=== PATIENT | female | born 1960 | race Hispanic/Latino ===

== ENCOUNTER 2024-07-10 10:28 | Emergency (ER) | payer OTHER, SELFPAY ==
[2024-07-10] MEDS ORDERED: LEVALBUTEROL 1.25 MG/3 ML NEB ONE ×2 (10:54→12:52)
--- NOTE | 2024-07-10 11:05 | RAD REPORT ---
EXAMINATION: ONE VIEW CHEST XR CLINICAL INDICATION: Female, 64 years old. [facility] DYSPNEA Bed Name: 7 TECHNIQUE: 1 View, AP supine, X-ray of the chest was performed. [id number]. COMPARISON: No prior exam. FINDINGS: Lungs and pleura: Clear lungs. No effusion. Heart and mediastinum: Normal heart size. Unremarkable mediastinal contours. Osseous structures: No acute abnormality. Tubes/lines: None Other: None. IMPRESSION: No acute intrathoracic abnormality.
[2024-07-10 11:14] LABS: Absolute Basophils 0.1 K/uL (0-0.5); Absolute Eosinophils 0.5 K/uL (0-0.5); Absolute Lymphocytes (CBC) 1.9 K/uL (0.7-4.9); Absolute Monocytes 0.5 K/uL (0.1-1.3); Absolute Neutrophil 6.1 K/uL (1.8-8.0); Basophils % 0.7 % (0-1.3); Eosinophils % 5.5 % (0-4.4); Hematocrit 37.5 % (36.0-45.0); Hemoglobin 12.2 g/dL (12.0-15.0); Lymphocytes % 20.7 % (15.3-44.8); MCH 27.6 pg (27.0-35.0); MCHC 32.6 g/dL (32.0-36.0); MCV 84.5 fL (80-100); Monocytes % 5.7 % (3.3-12.3); Neutrophils % 67.4 % (41.7-73.7); Platelets 155 thou/uL (152-406); RBC Red Blood Cell Count 4.43 M/uL (3.86-4.86); Red Cell Distribution Width 14.3 % (12.1-15.2)
[2024-07-10 11:28] LABS: Albumin 3.8 g/dL (3.4-5.0); Anion Gap 7.3 mEq/L (5.0-15.0); Bilirubin Direct 0.2 mg/dL (0-0.2); Bilirubin Indirect, Calculated 0.3 mg/dL (0.2-0.8); Bilirubin Total 0.5 mg/dL (0.2-1.0); Globulin 3.7 g/dL (2.3-3.5); Potassium 3.3 mEq/L (3.5-5.1); Protein, Total 7.5 g/dL (6.4-8.2); Troponin High Sensitivity 4.3 pg/mL (<58.9)
--- NOTE | 2024-07-10 11:28 | RAD REPORT ---
EXAMINATION: US LOWER EXTREMITY VENOUS DOPPLER BILATERAL CLINICAL INDICATION: Female, 64 years old.Swelling TECHNIQUE: Complete bilateral duplex sonography of the lower extremity veins was performed. The exami nation included compression for vein patency, color Doppler imaging and flow augmentation in response to distal compression of the distal external iliac, common femoral, femoral, popliteal, kit david, tibial and great saphenous veins. [id number]. COMPARISON: No prior exams FINDINGS: Duplex sonography imaging demonstrates all deep examined to be fully compressible with spontaneous, p hasic and augmented flow bilaterally. IMPRESSION: No evidence of deep venous thrombosis seen in either lower extremity.
--- NOTE | 2024-07-10 12:16 | RAD REPORT ---
EXAMINATION: CTA CHEST PE CLINICAL INDICATION: Female, 64 years old, swelling/shortness of breath TECHNIQUE: This examination was performed according to an angiographic protocol with 3D post-processi ng. This involves 3D reconstructions, MIPs, volume rendered images and/or shaded surface rendering. One or more of the following dose reduction techniques were used: Automated exposure control, adjustm ent of the mA and/or kV according to patient size, and/or iterative reconstruction. Unless otherwise specified, incidental findings do not require dedicated imaging follow-up. [id number]. COMPARISON: Same-day chest radiograph FINDINGS: LOWER NECK: Visualized thyroid gland and soft tissues are normal. LUNGS AND AIRWAYS: Bronchial wall thickening and possibly some secretions in the lower lobe airways. No consolidative airspace disease. No suspicious pulmonary nodules. PLEURA: No pleural effusion. No pneumothorax. Hemidiaphragms are normally positioned. MEDIASTINUM AND LYMPH NODES: No mediastinal mass or fluid collection. Normal size mediastinal, hilar, and axillary lymph nodes. THORACIC AORTA: Normal caliber and configuration. PULMONARY ARTERIES: Good quality examination. Normal caliber. No evidence of pulmonary emboli to the subsegmental level. HEART: Normal heart size. No pericardial effusion. Coronary arterial calcifications are present. OSSEOUS STRUCTURES AND CHEST WALL: Intact. UPPER ABDOMEN: No significant abnormalities. IMPRESSION: No evidence of pulmonary emboli to the subsegmental level. Nonspecific bronchial wall thickening with some secretions in the lower lungs that could be secondary to bronchitis.
[2024-07-10] MEDS ORDERED: METHYLPREDNISOLONE 125 MG INJ ONE (12:52)
--- NOTE | 2024-07-10 13:32 | EDPHYS ---
Physician Documentation [facility] Name: Bossman Davis Age: 64 yrs Sex: Female : 1960 Arrival Date: 07/10/2024 Time: 10:28 Bed 7 Private MD: ED Physician Willy Thomas HPI: 07/10 10:48 This 64 yrs old Female presents to ER via Ambulatory with complaints of Asthma rn Exacerbation. 10:58 The patient has shortness of breath at rest, with light activity. Onset: The rn symptoms/episode began/occurred 1 week(s) ago. The patient's shortness of breath is aggravated by exertion, light activity, supine position, talking, walking. Severity of symptoms: At their worst the symptoms were moderate in the emergency department the symptoms are unchanged. The patient has experienced similar episodes in the past. Patient reports recently moved here from [place], told in the past had unknown lung problem and that she needed "something", never got that something and now presents with worsening dyspnea on exertion and orthopnea over the last week. Denies previous cardiac problems. No fever or chills. Does not feel like this is an infection. No trauma. Does report lower extremity edema for the last 4 days.. Historical: - Allergies: 10:42 No Known Allergies; hb - Home Meds: 10:42 Albuterol Inhl [Active]; losartan 50 mg oral tablet [Active]; atorvastatin oral hb [Active]; Flanax (naproxen) oral [Active]; - PMHx: 10:42 Hypertension; hb - Immunization history:: Adult Immunizations up to date. - Infectious Disease History:: Denies. - Social history:: Smoking status: Patient denies any tobacco usage or history of. - Family history:: not pertinent. - Hospitalizations: : No recent hospitalization is reported. ROS: 10:58 Constitutional: Negative for fever, chills, and weight loss, Cardiovascular: Negative rn for chest pain, palpitations, and edema, Respiratory: Positive for shortness of breath Abdomen/GI: Negative for abdominal pain, nausea, vomiting, diarrhea, and constipation, Back: Negative for injury and pain, MS/Extremity: Positive for lower extremity edema Skin: Negative for injury, rash, and discoloration, Neuro: Negative for headache, weakness, numbness, tingling, and seizure, Exam: 10:58 Constitutional: This is a well developed, well nourished patient who is awake, alert, rn mild to moderate tachypnea, walks to room using cane Head/Face: Normocephalic, atraumatic. Cardiovascular: Tachycardic, regular. Respiratory: Mild to moderate tachypnea with diminished breath sounds at bases and crackles. Occasional wheeze that is worse in the right lung compared to left lung MS/ Extremity: Pulses equal, no cyanosis. Neurovascular intact. Nonpitting edema bilateral lower extremities Neuro: Awake and alert, GCS 15 antalgic gait 12:08 ECG was reviewed by the Attending Physician. rn Vital Signs: 10:40 BP 151 / 89; Pulse 99; Resp 24; Temp 98.9(O); Pulse Ox 97% on R/A; Weight 74.84 kg; hb Height 5 ft. 1 in. ; Pain 0/10; 12:30 BP 144 / 79; Pulse 96; Resp 26 S; Pulse Ox 93% on R/A; aa5 13:30 BP 142 / 82; Pulse 95; Resp 20 S; Temp 97.8(TE); Pulse Ox 95% on R/A; aa5 10:40 Body Mass Index 31.18 (74.84 kg, 154.94 cm) hb 10:40 Pain Scale: Adult hb MDM: 10:33 Patient medically screened. rn 13:30 Differential diagnosis: Anemia asthma, Bronchitis CHF exacerbation, Myocardial rn Infarction pneumonia, Pneumothorax Psychogenic pulmonary edema, Pulmonary Embolism. Data reviewed: vital signs, nurses notes, lab test result(s), EKG, radiologic studies, CT scan, plain films, and as a result, I will discharge patient. Independent interpretation of the following test(s) in the Emergency Department EKG: See my EKG interpretation above X-Ray: My interpretation is Chest x-ray images negative for pneumothorax or pneumonia per my interpretation. Care significantly affected by the following chronic conditions: Asthma, hypertension. Counseling: I had a detailed discussion with the patient and/or guardian regarding the historical points, exam findings, and any diagnostic results supporting the discharge/admit diagnosis, lab results, radiology results, the need for outpatient follow up, to return to the emergency department if symptoms worsen or persist or if there are any questions or concerns that arise at home. Response to treatment: the patient's symptoms have markedly improved after treatment, and as a result, I will discharge patient. Special discussion: I discussed with the patient/guardian in detail that at this point there is no indication for admission to the hospital. It is understood, however, that if the symptoms persist or worsen the patient needs to return immediately for re-evaluation. 07/10 10:46 Order name: Basic Metabolic Panel; Complete Time: 11:07/10 10:46 Order name: CBC with Diff; Complete Time: :07/10 10:46 Order name: LFT's; Complete Time: 11:07/10 10:46 Order name: NT PRO-BNP; Complete Time: :07/10 10:46 Order name: Troponin HS; Complete Time: :07/10 10:46 Order name: XRAY Chest (1 view); Complete Time: 11:07/10 11:02 Order name: Extrem Venous W Compression Jose US; Complete Time: 11:07/10 11:02 Order name: CT Chest For PE Angio; Complete Time: 12:18 07/10 10:46 Order name: Cardiac monitoring; Complete Time: 10:48 rn 07/10 10:46 Order name: EKG - Nurse/Tech; Complete Time: 11:07 07/10 10:46 Order name: IV Saline Lock; Complete Time: 10:49 07/10 10:46 Order name: Labs collected and sent; Complete Time: 10:48 rn 07/10 10:46 Order name: O2 Per Protocol; Complete Time: 10:48 07/10 10:46 Order name: O2 Sat Monitoring; Complete Time: 10:49 rn EC:08 Rate is 89 beats/min. Rhythm is regular. Left axis deviation noted. QRS is positive in rn lead I and negative in lead aVF. NC interval is normal. QRS interval is normal. QT interval is normal. No Q waves. T waves are Normal. No ST changes noted. Clinical impression: NSR w/ Non-specific ST/T Changes. Interpreted by me. Reviewed by me. Administered Medications: 10:55 Drug: Levalbuterol Inhalation 1.25 mg Inhalation once Route: Inhalation; aa5 12:55 Drug: Levalbuterol Inhalation 1.25 mg Inhalation once Route: Inhalation; aa5 12:55 Drug: MethylPrednisoLONE IVP 125 mg IVP once Route: IVP; Site: left antecubital; aa5 13:00 Follow up: Response: No adverse reaction aa5 Disposition Summary: 07/10/24 13:31 Discharge Ordered Notes: Location: Home rn Problem: new rn Symptoms: have improved rn Condition: Stable rn Diagnosis - Unspecified asthma with (acute) exacerbation rn Followup: rn - With: Private Physician - When: As needed - Reason: Recheck today's complaints, Re-evaluation by your physician Discharge Instructions: - Discharge Summary Sheet rn - Asthma, Adult rn Forms: - Medication Reconciliation Form rn - 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 Day 2, 3, 4 , 5 take one (1) tablet once daily.; 6 tablet; Refills: 0, Product Selection Permitted Signatures: Dispatcher [employer] EDID Willy Thomas MD MD rn Calderon, Audri RN RN aa5 Liberty Iverson RN RN Corrections: (The following items were deleted from the chart) 11:02 11:02 Chest For PE Angio+CT.RAD.BRZ ordered. [facility] EDID 11:02 10:58 Constitutional: This is a well developed, well nourished patient who is awake, rn alert, mild to moderate tachypnea, walks to room using cane Head/Face: Normocephalic, atraumatic. rn
--- NOTE | 2024-07-10 13:32 | ER ---
Nurse's Notes [facility] Name: Bossman Davis Age: 64 yrs Sex: Female : 1960 Arrival Date: 07/10/2024 Time: 10:28 Bed 7 Private MD: Diagnosis: Unspecified asthma with (acute) exacerbation Presentation: 07/10 10:40 Chief complaint: BLE swelling and SOB x 4 days. Coronavirus screen: At this time, the hb client does not indicate any symptoms associated with coronavirus-19. Ebola Screen: No symptoms or risks identified at this time. Initial Sepsis Screen: Does the patient meet any 2 criteria? RR > 20 per min. No. Patient's initial sepsis screen is negative. Does the patient have a suspected source of infection? No. Patient's initial sepsis screen is negative. Risk Assessment: Do you want to hurt yourself or someone else? Patient reports no desire to harm self or others. Onset of symptoms was July 06, 2024. 10:40 Method Of Arrival: Ambulatory hb 10:40 Acuity: CHRISTO 3 hb Historical: - Allergies: 10:42 No Known Allergies; hb - Home Meds: 10:42 Albuterol Inhl [Active]; losartan 50 mg oral tablet [Active]; atorvastatin oral hb [Active]; Flanax (naproxen) oral [Active]; - PMHx: 10:42 Hypertension; hb - Immunization history:: Adult Immunizations up to date. - Infectious Disease History:: Denies. - Social history:: Smoking status: Patient denies any tobacco usage or history of. - Family history:: not pertinent. - Hospitalizations: : No recent hospitalization is reported. Screenin:50 [facility] ED Fall Risk Assessment (Adult) History of falling in the last 3 months, aa5 including since admission No falls in past 3 months (0 pts) Confusion or Disorientation No (0 pts) Intoxicated or Sedated No (0 pts) Impaired Gait No (0 pts) Mobility Assist Device Used No (0 pt) Altered Elimination No (0 pt) Score/Fall Risk Level 0 - 2 = Low Risk Oriented to surroundings, Maintained a safe environment, Educated pt \T\ family on fall prevention, incl call for assistance when getting out of bed. Abuse screen: Denies threats or abuse. Nutritional screening: No deficits noted. Tuberculosis screening: No symptoms or risk factors identified. Assessment: 10:50 General: Appears uncomfortable, Behavior is calm, cooperative. Pain: Complains of pain aa5 in upper back Pain does not radiate. Pain currently is 6 out of 10 on a pain scale. Quality of pain is described as sharp, Pain began 2-3 days ago. Is intermittent. Neuro: Level of Consciousness is awake, alert, obeys commands, Oriented to person, place, time, situation. Cardiovascular: Denies chest pain, Heart tones S1 S2 present Edema to kam lower extremities. Rhythm is regular. Respiratory: Reports shortness of breath at rest pain with respiration Airway is patent Respiratory effort is labored, Respiratory pattern is tachypnea Breath sounds with wheezes bilaterally. GI: No signs and/or symptoms were reported involving the gastrointestinal system. : No signs and/or symptoms were reported regarding the genitourinary system. EENT: No signs and/or symptoms were reported regarding the EENT system. Derm: Skin is pink, warm \T\ dry. Musculoskeletal: Range of motion: intact in all extremities. 11:25 Reassessment: Patient states feeling better. Patient states symptoms have improved. aa5 Neuro: Level of Consciousness is awake, alert, obeys commands, Oriented to person, place, time, situation. Respiratory: Airway is patent Respiratory effort is even, unlabored, Respiratory pattern is tachypnea. Derm: Skin is pink, warm \T\ dry. 12:30 Neuro: Level of Consciousness is awake, alert, obeys commands, Oriented to person, aa5 place, time, situation. Respiratory: Airway is patent Respiratory effort is even, labored, Respiratory pattern is tachypnea. Derm: Skin is pink, warm \T\ dry. 12:30 Respiratory: the patient has moderate shortness of breath. aa5 13:30 Reassessment: Patient is alert, oriented x 3, equal unlabored respirations, skin aa5 warm/dry/pink. Vital Signs: 10:40 BP 151 / 89; Pulse 99; Resp 24; Temp 98.9(O); Pulse Ox 97% on R/A; Weight 74.84 kg; hb Height 5 ft. 1 in. ; Pain 0/10; 12:30 BP 144 / 79; Pulse 96; Resp 26 S; Pulse Ox 93% on R/A; aa5 13:30 BP 142 / 82; Pulse 95; Resp 20 S; Temp 97.8(TE); Pulse Ox 95% on R/A; aa5 10:40 Body Mass Index 31.18 (74.84 kg, 154.94 cm) hb 10:40 Pain Scale: Adult hb ED Course: 10:32 Patient arrived in ED. im 10:33 Willy Thomas MD is Attending Physician. rn 10:41 Triage completed. hb 10:42 Joleen Bah, ABDIAZIZ is Primary Nurse. aa5 10:43 Arm band placed on. hb 10:50 Patient has correct armband on for positive identification. Bed in low position. Call aa5 light in reach. Side rails up X 1. Adult w/ patient. Client placed on continuous cardiac and pulse oximetry monitoring. NIBP monitoring applied. clinical research monitor on. Pulse ox on. NIBP on. 10:53 XRAY Chest (1 view) In Process Unspecified. EDMS 10:58 Initial lab(s) drawn, by me, sent to lab. Inserted saline lock: 20 gauge in left aa5 antecubital area, using aseptic technique. Blood collected. Flushed with 10 mL NS. 11:24 Extrem Venous W Compression Kam US In Process Unspecified. EDMS 12:05 CT Chest For PE Angio In Process Unspecified. EDMS 13:30 No provider procedures requiring assistance completed. IV discontinued, intact, aa5 bleeding controlled, No redness/swelling at site. Pressure dressing applied. Administered Medications: 10:55 Drug: Levalbuterol Inhalation 1.25 mg Inhalation once Route: Inhalation; aa5 12:55 Drug: Levalbuterol Inhalation 1.25 mg Inhalation once Route: Inhalation; aa5 12:55 Drug: MethylPrednisoLONE IVP 125 mg IVP once Route: IVP; Site: left antecubital; aa5 13:00 Follow up: Response: No adverse reaction aa5 Medication: 11:03 VIS not applicable for this client. aa5 Outcome: 13:31 Discharge ordered by . rn 13:35 Discharged to home ambulatory, with friend, aa5 13:35 Condition: improved 13:35 Discharge instructions given to patient, Instructed on discharge instructions, follow up and referral plans. medication usage, Demonstrated understanding of instructions, follow-up care, medications, Prescriptions given X 2, 13:40 Patient left the ED. aa5 Signatures: Dispatcher [employer] Willy Rees MD MD rn Calderon, Audri, RN RN aa5 Liberty Iverson RN RN Catrina Botello
[2024-07-10 13:55] VITALS: BP 151/89; TEMP 98.9; O2SAT 97
--- NOTE | 2024-07-11 12:50 | EKG ---
Test Date: 2024-07-10 Test Time: 11:05:40 Core Man: TAVO MEASUREMENT RESULTS: Intervals: Rate: 89 LA: 166 QRSD: 90 QT: 362 QTc: 440 [place]: P: 66 LA: 166 QRS: 2 T: 44 INTERPRETIVE STATEMENTS: Normal sinus rhythm Cannot rule out Inferior infarct, age undetermined Abnormal ECG No previous ECG available for comparison Electronically Signed On 07-11-24 12:47:10 CDT by Giorgi Valadez
== END 2024-07-10 13:40 | disposition home or self-care (01) ==
LOC: ER 10:28
DX: J45.901 Unspecified asthma with (acute) exacerbation (principal); I10 Essential (primary) hypertension
CPT/HCPCS: 36415; 71045; 71275; 80048; 80076; 83880; 84484; 85025; 93005; 93970; 96374; 99285; J2919; J7614; Q9967